=== PATIENT | male | born 1980 | race Two or more races ===

== ENCOUNTER 2017-08-08 17:10 | Emergency (ER) | payer OTHER ==
[2017-08-08 17:22] VITALS: BP 120/62; PULSE 124; TEMP 103; BMI 29.9
[2017-08-08] MEDS ORDERED: ACETAMINOPHEN 325 MG TABLET (FP) PO ONE (17:46)
--- NOTE | 2017-08-08 17:53 | PDOC ---
History of Present Illness - General Chief Complaint: SIRS, Suspected/Possible Stated Complaint: PAIN Time Seen by Provider: 08/08/17 17:34 History Source: Patient - History of Present Illness Initial Comments: 08/08/17 18:06 37M presents with week long sore throat comes to the ER complaining of chills, sweating and dizziness since waking up this morning. Took two Tylenol at 3:30pm today but didn't feel better. States that his son has Strep Throat 08/08/17 18:13 08/08/17 18:19 Past History - Past Medical History Allergies/Adverse Reactions: Allergies Allergy/AdvReac Type Severity Reaction Status Date / Time No Known Allergies Allergy Verified 08/08/17 17:13 COPD: No - Suicide/Smoking/Psychosocial Hx Smoking History: Never smoked Have you smoked in the past 12 months: No Information on smoking cessation initiated: No Hx Alcohol Use: Yes Drug/Substance Use Hx: No Substance Use Type: Alcohol Review of Systems - Review of Systems Able to Perform ROS?: Yes Is the patient limited Maori proficient: No Constitutional: Yes: See HPI HEENTM: Yes: See HPI, Throat Pain Respiratory: No: Cough, Orthopnea, Shortness of Breath, SOB with Exertion, SOB at Rest, Stridor, Wheezing, Productive cough Cardiac (ROS): No: Symptoms Reported ABD/GI: No: Symptoms Reported : No: Symptoms Reported Musculoskeletal: No: Symptoms Reported Integumentary: No: Symptoms Reported Neurological: No: Symptoms reported All Other Systems: Reviewed and Negative *Physical Exam - Vital Signs Last Vital Signs Temp Pulse Resp BP Pulse Ox 103 F H 124 H 20 120/62 98 08/08/17 17:13 08/08/17 17:13 08/08/17 17:13 08/08/17 17:13 08/08/17 17:13 - Physical Exam General Appearance: Yes: Nourished, Appropriately Dressed. No: Apparent Distress HEENT: positive: EOMI, JANEL, Normal ENT Inspection, Tonsillar Erythema. negative: Tonsillar Exudate Neck: positive: Trachea midline, Normal Thyroid. negative: Tender Respiratory/Chest: positive: Lungs Clear, Normal Breath Sounds. negative: Chest Tender, Respiratory Distress Cardiovascular: positive: Regular Rhythm, S1, S2, Tachycardia Gastrointestinal/Abdominal: positive: Normal Bowel Sounds, Flat. negative: Tender Extremity: positive: Normal Capillary Refill Integumentary: positive: Normal Color, Dry, Warm Neurologic: positive: Fully Oriented, Alert, Normal Mood/Affect, Motor Strength 01/18 ED Treatment Course - LABORATORY CBC & Chemistry Diagram: 08/08/17 17:50 08/08/17 17:50 Medical Decision Making - Medical Decision Making 08/08/17 19:00 37M with sore throat for 1 week and one day of fever, chills and dizziness. Fever 103 and tachy Rapid strep positive. Amoxicillin 1g a day for 10 days Repeat vitals and D/c Temp 99 HR: 100 08/08/17 19:04 *DC/Admit/Observation/Transfer Diagnosis at time of Disposition: Streptococcal pharyngitis - Discharge Dispostion Disposition: HOME Admit: No - Referrals - Patient Instructions Printed Discharge Instructions: DI for Strep Throat, DI for Fever (Symptom) -- Adult Additional Instructions: Come back to the Emergency Department for any new, worsening, or concerning symptoms like persistent fever, dizziness or cough. Follow up with primary physician. Take amoxicillin 1g once a day for 10 days. - Post Discharge Activity
[2017-08-08 18:01] LABS: BASOPHIL 0.6 % (0-2.0); MCH 27.3 pg (25.7-33.7); MCHC 33.2 g/dl (32.0-35.9); MEAN CELL VOLUME 82.2 fl (80-96); NEUTROPHILS 86.1 % (42.8-82.8); PLATELET COUNT 316 K/MM3 (134-434); RDW 14.6 % (11.9-15.9); WHITE BLOOD COUNT 15.1 K/mm3 (4.0-10.0)
[2017-08-08 18:11] LABS: URINE APPEARANCE CLEAR; URINE BILIRUBIN NEGATIVE (NEGATIVE); URINE BLOOD NEGATIVE (NEGATIVE); URINE COLOR YELLOW; URINE GLUCOSE (UA) NEGATIVE (NEGATIVE); URINE KETONE NEGATIVE (NEGATIVE); URINE NITRITE NEGATIVE (NEGATIVE); URINE PROTEIN NEGATIVE (NEGATIVE); URINE UROBILINOGEN NEGATIVE mg/dL (0.2-1.0)
[2017-08-08] MEDS ORDERED: ACETAMINOPHEN 325 MG TABLET (FP) ONE (18:18)
[2017-08-08 18:21] LABS: VENOUS PH 7.43 (7.32-7.42)
[2017-08-08 18:22] LABS: VENOUS BLOOD GAS HCO3 25.9 meq/L (19-25)
[2017-08-08 18:26] LABS: INR 1.19 (0.82-1.09); PROTHROMBIN TIME (PATIENT) 13.4 SEC (9.98-11.88)
[2017-08-08 18:28] LABS: ACTIVATED PTT 35.2 SECONDS (26.9-34.4)
[2017-08-08] MEDS ORDERED: AMOXICILLIN 500 MG CAPSULE (FP) PO ONE (18:29)
[2017-08-08 18:35] LABS: ANION GAP 9 (8-16); BILIRUBIN,TOTAL 0.4 mg/dL (0.2-1.0); CALCIUM 9.4 mg/dL (8.5-10.1); CO2 26 mmol/L (21-32); CREATININE 1.3 mg/dL (0.7-1.3); GLUCOSE,RANDOM 104 mg/dL (74-106); SGOT/AST 26 U/L (15-37); SGPT/ALT 51 U/L (12-78); TOT PROT 8.5 g/dl (6.4-8.2)
[2017-08-08 18:38] LABS: ALK PHOS 108 U/L (45-117); CPK 263 IU/L (39-308); TROPONIN I < 0.02 ng/ml (0.00-0.05)
[2017-08-08] MEDS ORDERED: AMOXICILLIN 500 MG CAPSULE (FP) ONE (18:46)
--- NOTE | 2017-08-08 19:05 | PDOC ---
Attending Attestation - Resident Resident Name: EllingtonSilver - ED Attending Attestation I have performed the following: I have examined & evaluated the patient, The case was reviewed & discussed with the resident, I agree w/resident's findings & plan, Exceptions are as noted - HPI HPI: 08/08/17 19:00 37 yo male previously healthy, here with c/o sore throat x one week. now with fever, and feeling fatigued. travel to [place] 4 mo ago, sick contact of daughter with strept 2 weeks ago. no n/v no abd pain . no urinary complaints. no cough. pain with swallowing, tolerating PO well. - Physicial Exam PE: 08/08/17 19:04 awake alert lungs clear bilat. heart reg tachycardia. abd soft nt nd. skin warmand dry no rash. throat mild erythema. no exudate. moist mucous membranes. - Medical Decision Making 08/08/17 19:04 differnetial: pna, dehydration, viral uri, flu, pharyngitis. plna labs flu swab strept. feveer control oral hydration. reassess pt strept positive, will treat with amoxicillin, tolerating PO in ed. dc home. 08/09/17 01:13 cxr with questionable infiltrate right cardiac border. pt tolerating PO. given amoxicillin which will treat potential pneumonia. d/w dr oliveira, who will see pt outpt. recommend pedialyte in addition. findings d/w mom. [place] home.
[2017-08-08 22:36] LABS: URINE LEUK ESTERASE Negative (NEGATIVE)
--- NOTE | 2017-08-09 09:28 | EKG ---
Test Reason : Blood Pressure : / mmHG Vent. Rate : 116 BPM Atrial Rate : 116 BPM P-R Int : 142 ms QRS Dur : 068 ms QT Int : 304 ms P-R-T Axes : 066 047 009 degrees QTc Int : 422 ms SINUS TACHYCARDIA POSSIBLE LEFT ATRIAL ENLARGEMENT NONSPECIFIC ST ABNORMALITY NO PREVIOUS ECGS AVAILABLE Confirmed by NEY CHAVEZ MD ([id number]) on 08/09/2017 9:28:27 AM Referred By: Confirmed By:NEY CHAVEZ MD
== END 2017-08-08 19:13 | disposition home or self-care (01) ==
LOC: JER 17:10
DX: J02.0 Streptococcal pharyngitis (principal); B95.0 Streptococcus, group A, as the cause of diseases classified elsewhere
CPT/HCPCS: 36415; 71010-TC; 80053; 81003; 82550; 82553; 82803; 83605; 84484; 85025; 85610; 85730; 87040; 87070; 87077; 87086; 87430; 87804; 93005; 93010; 99283-25